=== PATIENT | male | born 1935 | race Caucasian/White ===

== ENCOUNTER → 2016-08-15 | Outpatient (CLI) | payer MEDICARE, OTHER ==
[~2016-08-15] MED LIST: ADVIL200 M2 PO; LIPITOR PO; NAPROXEN PO
--- NOTE | ~2016-08-15 | CR173 ---
[facility] A Service of [facility] & [facility] RADIOLOGY TEXT RESULTS PATIENT: ARSH BULLOCK LOCATION: [facility] : 36 UNIT #: [id number] AGE: [address]: Andi Kaiser MD SEX: M ORDER DR: [id number] [facility] [address] [place], [place] [address] [id number] O MR#: [id number] Acc #: [id number] NAME: ARSH BULLOCK : 1935 SEX: M STUDY DATE/TIME: 08/15/2016 12:52 UNIT: [facility] ROOM: STUDY DESCRIPTION: CR Knee 3 Views Rt Attending Physician: Andi Kaiser M.D. Referring Physician: Andi Kaiser M.D. Ordering Physician: Andi Kaiser M.D. Primary Care Physician: Derek Lauren M.D. MEDICAL IMAGING REPORT This report is preliminary unless electronic signature is present EXAM Right knee 3 views HISTORY Preop evaluation for right knee arthroplasty, right knee pain, chronic knee pain. 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 There is ceny-ph-ljoz in the medial compartment. No significant joint effusion. Ossific fragment seen along the posterior joint line may represent a loose body. No fracture. No lytic or blastic lesions. IMPRESSION Tricompartment osteoarthritis with medial compartment predominance with a suspected loose body posterior joint line. Dictated by... Jim Sylvester M.D. THIS IS AN ELECTRONICALLY VERIFIED REPORT Jim Sylvester M.D. at 08/16/2016 8:42 PM SARA/con TD: 08/16/2016 08:42 JOB #: [id number] MEDICAL IMAGING REPORT COPY
--- NOTE | ~2016-08-15 | EKG ---
PATIENT: ARSH BULLOCK UNIT #: [id number] Ventricular Rate: 66 BPM Atrial Rate: 66 BPM P-R Interval: 164 ms QRS Duration: 100 ms Q-T Interval: 402 ms QTC Calculation(Bezet): 421 ms P Rogers: 46 degrees Calculated R Rogers: -42 degrees Calculated T Rogers: 5 degrees Diagnosis Line: Normal sinus rhythm Diagnosis Line: Left anterior fascicular block Diagnosis Line: Minimal voltage criteria for LVH, may be normal Diagnosis Line: variant Diagnosis Line: Junctional ST depression, probably abnormal Diagnosis Line: Abnormal ECG Diagnosis Line: No previous ECGs available Diagnosis Line: Confirmed by ESTEFANY BHAGAT MD ([id number]) on 08/15/2016 Diagnosis Line: 4:16:12 PM INTERPRETING MD: LEOLA BRAN
--- NOTE | ~2016-08-15 | CR63 ---
[facility] A Service of [facility] & [facility] RADIOLOGY TEXT RESULTS PATIENT: ARSH BULLOCK LOCATION: [facility] : 36 UNIT #: [id number] AGE: [address]: Andi Kaiser MD SEX: M ORDER DR: [id number] [facility] [address] [place], [place] [address] [id number] O MR#: [id number] Acc #: [id number] NAME: ARSH BULLOCK : 1935 SEX: M STUDY DATE/TIME: 08/15/2016 12:52 UNIT: [facility] ROOM: STUDY DESCRIPTION: CR Chest 2 View Attending Physician: Andi Kaiser M.D. Referring Physician: Andi Kaiser M.D. Ordering Physician: Andi Kaiser M.D. Primary Care Physician: Derek Lauren M.D. MEDICAL IMAGING REPORT This report is preliminary unless electronic signature is present EXAM Chest. DATE OF EXAM 08/15/2016 LOCATION [facility]. HISTORY 81-year-old male patient, preop right total knee arthroplasty. Osteoarthritis right knee. COMPARISON Chest, none. FINDINGS PA and lateral chest views show normal cardiac size and configuration. Hilar structures and mediastinal contours are preserved. Bilateral lungs are expanded and clear. IMPRESSION Negative chest. No acute chest finding. Dictated by... Darrick Poole M.D. THIS IS AN ELECTRONICALLY VERIFIED REPORT Darrick Poole M.D. at 08/16/2016 8:04 AM ZOHRA/luis TD: 08/15/2016 17:47 [facility] A Service [facility] RADIOLOGY TEXT RESULTS PATIENT: ARSH BULLOCK LOCATION: [facility] : 36 UNIT #: [id number] AGE: [address]: Andi Kaiser MD SEX: M ORDER DR: ROSA #: [id number] MEDICAL IMAGING REPORT COPY
[2016-08-15 10:42] LABS: HEMATOCRIT 44.7 % (38.0-50.0); HEMOGLOBIN 14.2 gm/dL (13.0-16.0); MEAN CELL VOLUME 90.9 FL (83-96); MEAN CORPUSCULAR HEMOGLOBIN 28.9 PG (28-34); MEAN CORPUSCULAR HGB CONC 31.8 g/dL (30-36); MEAN PLATELET VOLUME 8.9 FL (6.5-11.5); RED BLOOD COUNT 4.92 X10e (3.90-5.60); WHITE BLOOD COUNT 8.7 X10e3 (4.0-10.5)
[2016-08-15 10:56] LABS: INR 0.9; PROTHROMBIN TIME (PATIENT) 9.7 SECONDS (9.6-11.5)
[2016-08-15 11:24] LABS: BLOOD UREA NITROGEN 18 mg/dL (9-23); CALCIUM SERUM 9.3 mg/dL (8.4-10.2); CARBON DIOXIDE 30 mmol/L (22-31); CHLORIDE 106 mmol/L (100-111); CREATININE SERUM 0.9 mg/dL (0.6-1.4); GLOM FILT RATE Estimated ABOVE60 mL/min (>60); GLUCOSE FASTING 99 mg/dL (70-110); POTASSIUM 4.7 mmol/L (3.5-5.1); SODIUM 141 mmol/L (135-145)
[2016-08-15 11:26] LABS: URINE APPEARANCE CLEAR; URINE BILIRUBIN NEG (NEG); URINE BLOOD NEG (NEG); URINE COLOR YELLOW; URINE GLUCOSE NORM (NORM); URINE KETONE NEG (NEG); URINE LEUKOCYTE ESTERASE NEG (NEG); URINE NITRATE NEG (NEG); URINE PROTEIN NEG (NEG); URINE SPECIFIC GRAVITY 1.015 (1.003-1.035); URINE UROBILINOGEN NORM (NORM)
[2016-08-15 11:36] LABS: URINE SOURCE CLEAN CATCH
[2016-08-15 13:17] LABS: CULTURE INDICATED? NO
== END | disposition home or self-care (01) ==
LOC: CAMB 10:19
PROVIDERS: Orthopaedic Surgery
DX: Z01.818 Encounter for other preprocedural examination (principal); M17.11 Unilateral primary osteoarthritis, right knee
CPT/HCPCS: 36415; 71020; 73562; 80048; 81003; 85027; 85610; 86850; 86900; 86901; 87070; 93005

== ENCOUNTER 2016-08-21 05:22 | Inpatient (IN) | payer MEDICARE, OTHER ==
--- NOTE | ~2016-08-21 | CR170 ---
[facility] A Service of [facility] & [facility] RADIOLOGY TEXT RESULTS PATIENT: ARSH BULLOCK LOCATION: [place] [id number] : 36 UNIT #: [id number] AGE: [address]: Andi Kaiser MD SEX: M ORDER DR: [id number] [facility] [address] [place], [place] [address] [id number] I MR#: [id number] Acc #: [id number] NAME: ARSH BULLOCK : 1935 SEX: M STUDY DATE/TIME: 08/21/2016 10:04 UNIT: [facility] ROOM: [facility] STUDY DESCRIPTION: CR Knee 2 Views Rt Attending Physician: Andi Kaiser M.D. Ordering Physician: Andi Kaiser M.D. Primary Care Physician: Derek Lauren M.D. MEDICAL IMAGING REPORT This report is preliminary unless electronic signature is present EXAM Right knee 2 views, 08/21/2016 HISTORY Postop knee replacement COMPARISON 08/15/2016 FINDINGS Two views status post right knee arthroplasty. Dictated by... Moses Diaz M.D. THIS IS AN ELECTRONICALLY VERIFIED REPORT Moses Diaz M.D. at 08/23/2016 1:52 PM JOMAR/alice TD: 08/21/2016 14:51 JOB #: [id number] MEDICAL IMAGING REPORT Page 1 of 1 COPY
--- NOTE | ~2016-08-21 | DS ---
Unit #: [id number] #: [id number] Patient: ARSH BULLOCK [id number] [facility] [place], [place] [address] [id number] I MR#: [id number] NAME: ARSH BULLOCK ROOM: 448 Age: 81 Sex: M Admission Date: 08/21/2016 : 1935 Discharge Date: 08/24/2016 Attending Physician: Andi Kaiser M.D. Primary Care Physician: Derek Lauren M.D. DISCHARGE SUMMARY DISCHARGE DIAGNOSIS Right knee osteoarthritis, status post total knee arthroplasty. CONSULTATION Physical therapy. DISCHARGE MEDICATIONS 1. Tylenol. 2. Bisacodyl suppository p.r.n. 3. Senokot-S, one tablet p.o. b.i.d. 4. Lipitor 20 mg p.o. q. h.s. 5. Ibuprofen 200 mg p.o. b.i.d. p.r.n. pain. 6. Verona 10/325 mg, one to two tablets p.o. q.4 hours p.r.n. pain. 7. Aspirin 325 mg p.o. daily for six weeks, start 08/23/2016. DETAILS OF HOSPITAL STAY The patient was admitted for a right total knee arthroplasty on 08/21/2016. Did well with physical therapy. Labs and vital signs are stable. On postoperative day three, it was felt the was stable for discharge to rehab. DISPOSITION [facility]. DISCHARGE INSTRUCTIONS 1. The dressing on the right knee is to remain on for a minimum of seven days or may stay on until followup in the office. Once the dressing is removed, the wound can be left open to air. He can shower with the dressing on or off. 2. Continue with physical therapy and progressive strengthening and motion of the right knee. He can progress to a cane when tolerated. 3. Call the office for any questions or concerns regarding his care. 4. He is on aspirin 325 mg p.o. daily for six weeks for DVT prophylaxis. Dictated by... Andi Kaiser M.D. BD/gracia TD: 08/24/2016 08:47 JOB #: [id number] Unit #: [id number] #: [id number] Patient: VOWELS,ARSH DISCHARGE SUMMARY Page 1 of 1 X X DISCHARGE SUMMARY
--- NOTE | ~2016-08-21 | OR ---
Unit #: [id number] #: [id number] Patient: ARSH BULLOCK [id number] [facility]. [place], [place] [address] [id number] I MR#: [id number] NAME: ARSH BULLOCK ROOM: 448 Date of Procedure: 08/21/2016 Admission Date: 08/21/2016 Surgeon: Andi Kaiser M.D. : 1935 Attending Physician: Andi Kaiser M.D. Primary Care Physician: Derek Lauren M.D. OPERATIVE REPORT PREOPERATIVE DIAGNOSIS Right knee osteoarthritis. POSTOPERATIVE DIAGNOSIS Right knee osteoarthritis. PROCEDURE PERFORMED Right total knee arthroplasty. TRAY PACKER Harish Arriaga CFA. ANESTHESIA General with LMA. COMPLICATIONS None. SPECIMENS None. DRAINS None. SURGICAL IMPLANTS Jeanie Persona knee arthroplasty System size 8 PS femur, size F tibial tray, 11 mm polyethylene insert, 35 mm patellar button, Palacos R+G cement. INDICATION FOR PROCEDURE Mr. Landers is an 81-year-old gentleman, who had previously taken care for his left knee osteoarthritis. He agreed with the left total knee arthroplasty. The right knee has been giving him a lot of trouble. He had failed conservative treatment. The patient wished to proceed with right total knee arthroplasty. Based on his imaging and clinical findings, this was felt to be reasonable. Risks, benefits, and alternatives of surgery were discussed with the patient. Informed consent was obtained. Risks include, but not limited to, infection, bleeding, nerve injury, blood clots, risks associated with anesthesia, need for further surgery, and possibly . DESCRIPTION OF PROCEDURE On 08/21/2016, the patient was seen in preoperative holding area, where Unit #: [id number] #: [id number] Patient: ARSH BULLOCK his surgical site was marked. Preoperative antibiotics were received. H and P and consent updated. Preoperative block performed. The patient was taken to the operating room and placed on operative table in supine position. General anesthesia was provided without complications. Right thigh-high tourniquet placed. Right lower extremity was prepped and draped in typical sterile fashion. Time-out performed confirming the correct surgical site and procedure. At this point, Esmarch was used to exsanguinate the leg and tourniquet inflated to 250 mmHg. Standard longitudinal incision was made for anterior approach for total knee arthroplasty. Medial parapatellar arthrotomy performed. Fat pad excised. Patella was measured at 25 mm. Reamer was taken down to 16 mm. It was smoothed out with a saw. It was sized at 35 mm. Three lug hole drills were placed. The patellar guard was placed. The knee was flexed up. Starting reamer placed down the canal of the femur. The sword was inserted up the canal of the femur and set at 11 mm with 5 degrees valgus. The jig was pinned in place. Distal femoral cut was made. The anterior referencing guide was used. It was measured with a size 8. Two pins were placed for the 3 degree external rotation setting. Next, the 4-in-1 cutting jig was placed. The 4 cuts were made. No notching noted. The instruments were then removed and focus was placed on the tibial side. Tibial guide placed. A 4 mm stylus taken off the medial side. Careful adjustment for slope and height noted along with varus valgus. The retractors were placed and the tibial cut was made. It was then freshened up with the saw freehand. At this point, the medial and lateral meniscus were removed. The posterior capsule and surrounding tissues were injected with periarticular anesthetic. Next, the sizer blocks were placed in 90 degrees flexion and full extension noted to be stable with a 10 mm block. The tibial tray was sized and placed with careful attention to rotation. It was pinned in place. The femoral trial was placed and 2 lug holes were drilled along with the PS box cut. A 10 mm trial insert was placed and the knee was cycled. It tracked midline. It was stable and had full extension. Patella button tracked appropriately. At this point, all instruments were removed. The tibia was drilled and punched. It was thoroughly irrigated with the pulse lavage system with normal saline containing bacitracin. It was thoroughly dried. On the back table, cement was mixed. It was then applied to the tibial surface and femur. The tibial tray and femoral component were placed. Excess cement removed. A 10 mm insert placed with the leg placed in extension. The patellar button was placed in similar fashion. After approximately 12 minutes, cement had hardened. The knee was trialed and was felt an 11 mm insert would most appropriately restore the knee kinematics. This was placed. The knee was stable. Full motion noted. The trial polyethylene insert removed. The posterior aspect of the knee was thoroughly irrigated. No fragments or cement noted. At this point, the final polyethylene was placed in standard fashion noted to be stable. The tourniquet was released at approximately 70 minutes. Hemostasis was achieved. Arthrotomy closed with #1 Vicryl suture. Subcutaneous tissue was then closed with 2-0 Vicryl suture followed by a 3-0 Monocryl subcuticular skin stitch. Dermabond, Telfa, and Tegaderm were placed followed by Jose bandages. The patient was subsequently awakened from general anesthesia in stable condition and taken to PACU postoperatively. POSTOPERATIVE PLAN The patient will be on standard 24-hour antibiotic protocol. He will be on Lovenox starting tomorrow while in the hospital and transitioned to aspirin upon discharge to rehab. He will be weightbearing as tolerated. He will have SCDs. No complications were encountered during the surgical procedure. Unit #: [id number] #: [id number] Patient: ARSH BULLOCK Dictated by... Andi Kaiser M.D. ADDIE/sal TD: 08/22/2016 05:53 JOB #: [id number] OPERATIVE REPORT Page 1 of 1 X X PROCEDURE OPERATIVE NOTE
[~2016-08-21 05:22] MED LIST changes: -ADVIL200 M2 PO; -LIPITOR PO
[2016-08-21 06:57] LABS: INR 0.9; PROTHROMBIN TIME (PATIENT) 9.8 SECONDS (9.6-11.5)
[2016-08-21] MEDS ORDERED: LIPITOR PO (10:31)
[2016-08-21] MEDS ORDERED: ADVIL200 M2 PO (11:36)
[2016-08-22 03:50] LABS: HEMATOCRIT 31.5 % (38.0-50.0); HEMOGLOBIN 10.1 gm/dL (13.0-16.0); MEAN CELL VOLUME 90.1 FL (83-96); MEAN CORPUSCULAR HGB CONC 32.2 g/dL (30-36); MEAN PLATELET VOLUME 9.4 FL (6.5-11.5); RED BLOOD COUNT 3.5 X10e (3.90-5.60); RED CELL DISTRIBUTION WIDTH 13.8 % (11.0-15.5); WHITE BLOOD COUNT 11.5 X10e3 (4.0-10.5)
[2016-08-22 04:29] LABS: BLOOD UREA NITROGEN 16 mg/dL (9-23); CALCIUM SERUM 7.9 mg/dL (8.4-10.2); CARBON DIOXIDE 24 mmol/L (22-31); CHLORIDE 108 mmol/L (100-111); GLOM FILT RATE Estimated ABOVE60 mL/min (>60); GLUCOSE FASTING 120 mg/dL (70-110); SODIUM 133 mmol/L (135-145)
[2016-08-23 04:44] LABS: HEMATOCRIT 33.3 % (38.0-50.0); HEMOGLOBIN 10.8 gm/dL (13.0-16.0); MEAN CELL VOLUME 91.4 FL (83-96); MEAN CORPUSCULAR HEMOGLOBIN 29.5 PG (28-34); MEAN CORPUSCULAR HGB CONC 32.3 g/dL (30-36); MEAN PLATELET VOLUME 9.7 FL (6.5-11.5); RED BLOOD COUNT 3.65 X10e (3.90-5.60); RED CELL DISTRIBUTION WIDTH 13.7 % (11.0-15.5)
[2016-08-23 05:43] LABS: BLOOD UREA NITROGEN 11 mg/dL (9-23); BUN/CREATININE RATIO 12.22; CALCIUM SERUM 8.2 mg/dL (8.4-10.2); CARBON DIOXIDE 27 mmol/L (22-31); CHLORIDE 105 mmol/L (100-111); CREATININE SERUM 0.9 mg/dL (0.6-1.4); GLOM FILT RATE Estimated ABOVE60 mL/min (>60); GLUCOSE FASTING 110 mg/dL (70-110); POTASSIUM 4.1 mmol/L (3.5-5.1); SODIUM 138 mmol/L (135-145)
[2016-08-23 13:08] LABS: HEMATOCRIT 36.2 % (38.0-50.0); HEMOGLOBIN 11.4 gm/dL (13.0-16.0)
[2016-08-23 13:36] LABS: BUN/CREATININE RATIO 13.33; CALCIUM SERUM 8.2 mg/dL (8.4-10.2); CREATININE SERUM 0.9 mg/dL (0.6-1.4); GLOM FILT RATE Estimated 80.4 mL/min (>60); MAGNESIUM 2.2 mg/dL (1.6-3.0); POTASSIUM 4.1 mmol/L (3.5-5.1)
[2016-08-24 04:17] LABS: HEMATOCRIT 32.3 % (38.0-50.0); HEMOGLOBIN 10.5 gm/dL (13.0-16.0); MEAN CELL VOLUME 90.1 FL (83-96); MEAN CORPUSCULAR HEMOGLOBIN 29.2 PG (28-34); MEAN CORPUSCULAR HGB CONC 32.4 g/dL (30-36); MEAN PLATELET VOLUME 9.3 FL (6.5-11.5); RED BLOOD COUNT 3.59 X10e (3.90-5.60); RED CELL DISTRIBUTION WIDTH 13.9 % (11.0-15.5); WHITE BLOOD COUNT 11.3 X10e3 (4.0-10.5)
[2016-08-24 04:38] LABS: BUN/CREATININE RATIO 21.42; CALCIUM SERUM 7.9 mg/dL (8.4-10.2); CREATININE SERUM 0.7 mg/dL (0.6-1.4); GLOM FILT RATE Estimated 89.2 mL/min (>60); POTASSIUM 4.4 mmol/L (3.5-5.1)
== END 2016-08-24 12:36 | DRG 470 ==
LOC: CSUR 05:22 → CPACUOF 07:25 → C4B 10:50
PROVIDERS: Nurse Practitioner; Orthopaedic Surgery
PROC: 0SRC0J9 Replacement of Right Knee Joint with Synthetic Substitute, Cemented, Open Approach (ICD-10-PCS; principal; 2016-08-21 07:30)
DX: M17.11 Unilateral primary osteoarthritis, right knee (principal); Z80.0 Family history of malignant neoplasm of digestive organs; Z79.82 Long term (current) use of aspirin; Z96.652 Presence of left artificial knee joint; E78.00 Pure hypercholesterolemia, unspecified
CPT/HCPCS: 73560; 80048; 82947; 83735; 85014; 85018; 85027; 85610; 94010; 97110; 97116; 97162; 97165; C1776; G8978-GP; G8979-GP; G8980-GP; G8987-GO; G8988-GO; G8989-GO; J0171; J0330; J0690; J0735; J1650; J1885; J2250; J2405; J2710; J2795; J3010